=== PATIENT | male | born 1975 | race American Indian/Alaskan Native ===

== ENCOUNTER 2018-05-06 20:51 | Emergency (ER) | payer OTHER ==
[2018-05-06 21:39] VITALS: BP 137/81; PULSE 84; RESP 20; TEMP 98.6; O2SAT 100
[2018-05-06] MEDS ORDERED: Lidocaine 1% Inj (20ml) INFIL ONE (21:50)
[2018-05-06] MEDS ORDERED: Tdap Vaccine 0.5 ml Vial (10-64 yrs) IM ONE (21:50)
[2018-05-06] MEDS ORDERED: Lidocaine 1% 20 MG/2 ML PF AMP ONE (21:58)
--- NOTE | 2018-05-06 22:46 | ED PDOC ---
HPI: General Adult Time Seen by Provider: 05/06/18 21:50 Chief Complaint (Nursing): Abnormal Skin Integrity Chief Complaint (Provider): wrist injury;laceration History Per: Patient (43 y/o male here for evaluation of right wrist and left hand laceration that occurred today while helping someone fix tire. States garry was not propped up correctly and car landed on right wrist. Unknown sharp edge of hardware cut him on left hand fifth digit. He is right hand dominant. Unknown td status.) Past Medical History Reviewed: Historical Data, Nursing Documentation, Vital Signs Vital Signs: Last Vital Signs Temp 98.6 F 05/06/18 21:37 Pulse 84 05/06/18 21:37 Resp 20 05/06/18 21:37 BP 137/81 05/06/18 21:37 Pulse Ox 100 05/06/18 22:48 - Family History Family History: States: No Known Family Hx - Home Medications Home Medications: Ambulatory Orders Medication Instructions Recorded Cephalexin [cephalexin] 500 mg PO QID #20 cap 05/06/18 - Allergies Allergies/Adverse Reactions: Allergies Allergy/AdvReac Type Severity Reaction Status Date / Time No Known Allergies Allergy Verified 05/06/18 21:37 Review of Systems ROS Statement: Except As Marked, All Systems Reviewed And Found Negative Physical Exam - Reviewed Nursing Documentation Reviewed: Yes Vital Signs Reviewed: Yes - Physical Exam Appears: Positive for: Well, Non-toxic, No Acute Distress Head Exam: Positive for: ATRAUMATIC, NORMAL INSPECTION, NORMOCEPHALIC Skin: Positive for: Normal Color, Warm, DRY Eye Exam: Positive for: EOMI, Normal appearance, PERRL ENT: Positive for: Normal ENT Inspection Neck: Positive for: Normal, Painless ROM Cardiovascular/Chest: Positive for: Regular Rate, Rhythm Respiratory: Positive for: CNT, Normal Breath Sounds Gastrointestinal/Abdominal: Positive for: Normal Exam, Soft Back: Positive for: Normal Inspection Extremity: Positive for: Normal ROM, Swelling (dorsal surface of right distal forearm.), Other (2.5 cm laceration volar surface of fifth digit left hand; Able to flex and extend digits without difficulty.) Neurologic/Psych: Positive for: Alert, Oriented - ECG O2 Sat by Pulse Oximetry: 100 - Progress ED Course And Treament: Tdap 0.5ml IM x 1 dose Disposition - Clinical Impression Clinical Impression: Finger laceration, Wrist injury - Patient ED Disposition Is Patient to be Admitted: No - Disposition Disposition: Routine/Home Disposition Time: 22:59 Condition: FAIR Additional Instructions: F/U WITH PMD IN 2-3 DAYS FOR WOUND EVALUATION. RETURN OR F/U WITH PMD/URGENT CARE IN 7 TO 10 DAYS FOR REMOVAL OF SUTURES. Prescriptions: Cephalexin [cephalexin] 500 mg PO QID #20 cap Instructions: Laceration Repair Procedure: Wound Repair - Time Performed Time Performed: 22:47 - Time Out Time Out: Site verified - Consent Obtained Consent obtained: Verbal - Performed by Performed by: Mid-level Provider - Indications Indication(s):: Laceration - Location Location:: Left, Hand Finger:: Little Dimensions Length cm: 2.5 cm Depth:: Epidermis - Anesthetic Technique Anesthetic Technique: Regional block Local/Regional Anesthetic:: Lidocaine 1% - Irrigated Irrigated with ml of normal saline: 150 ml - Complexity Complexity:: Simple (one layer) - Wound repair method Sutures:: # (six), Size (4-0), Type (prolene), Technique (interrupted) - Patient tolerated procedure Patient Tolerated Procedure:: Well
--- NOTE | 2018-05-07 14:45 | RAD ---
Date of service: 05/06/2018 PROCEDURE: Right Wrist Radiographs. HISTORY: WRIST PAIN COMPARISON: None. FINDINGS: BONES: Normal. No fracture. JOINTS: Normal. No dislocation. SOFT TISSUES: Normal. OTHER FINDINGS: None. IMPRESSION: Normal right wrist radiographs.
== END 2018-05-06 23:44 | disposition home or self-care (01) ==
LOC: H.ER 20:51
DX: S61.217A Laceration without foreign body of left little finger without damage to nail, initial encounter (principal); S69.91XA Unspecified injury of right wrist, hand and finger(s), initial encounter; W45.8XXA Other foreign body or object entering through skin, initial encounter